=== PATIENT | male | born 1965 | race Asian ===

== ENCOUNTER 2017-04-09 12:38 | Emergency (ER) | payer OTHER ==
[~2017-04-09] VITALS: Ht 165.1 cm; Wt 60.0 kg
[2017-04-09 12:42] VITALS: Ht 165.1 cm; Wt 60.0 kg
[2017-04-09] MEDS ORDERED: DIPHTH/TET/ACEL PERTUSS (ADULT) 0.5 ML VIAL IM* ONE (13:30)
--- NOTE | 2017-04-09 13:42 | RADRPT ---
PROCEDURE: US Abdomen. CLINICAL INDICATION: abdominal pain TECHNIQUE: Multiple real-time images were acquired of the patient's abdomen and retroperitoneum ut ilizing a high resolution transducer. COMPARISON: None FINDINGS: There is no evidence of free fluid. RPTAT: AA IMPRESSION: No evidence of free fluid. .Tarun Tovar MD, MD Date Time Electronically viewed and signed by .Tarun Tovar MD, on 04/09/2017 13:42 .S/
--- NOTE | 2017-04-09 13:56 | ERD ---
ER Documentation Chief Complaint Date/Time DATE: 04/09/17 TIME: 13:54 Chief Complaint Complains of a laceration to left knee after a fall HPI Patient is a 51-year-old male with a past medical history of hypertension and high cholesterol who presents to the ED with a fall off of a ladder today. Patient is here with his . Patient was on top of a wooden ladder approximately 8 feet trying to change the air filter and the ladder broke andand fell off the ladder and landed on his knees. Patient states that he only has pain to his left knee and mild abdominal pain. Denies passing out or hitting his head or losing consciousness. However per patient is acting slightly differently. She states that he was saying the wrong street names however he he was able to direct with proper directions to the ER. Denies chest pain or cough or shortness of breath. Denies leg pain or leg swelling. States that he is unable to ambulate on his left knee. Denies pain in his hips. Denies back pain. No other complaints. ROS All systems reviewed and are negative except as per history of present illness. Medications Home Meds Active Scripts Hydrocodone/Acetaminophen ([place] 5-325 Tablet) 1 Each Tablet, 1 TAB PO Q6H Y for PAIN, #7 TAB Prov:JUAN SHAW PA-C 04/09/17 Allergies Allergies: Coded Allergies: No Known Allergy (Unverified , 04/09/17) PMhx/Soc Medical and Surgical Hx: pt denies Surgical Hx History of Surgery: No Anesthesia Reaction: No Hx Neurological Disorder: No Hx Cardiac Disorders: Yes (hypertension) Hx Psychiatric Problems: No Hx Miscellaneous Medical Probl: No Hx Alcohol Use: No Hx Substance Use: No Hx Tobacco Use: No Smoking Status: Never smoker FmHx Family History: No coronary disease, No diabetes, No other Physical Exam Vitals Vital Signs Date Time Temp Pulse Resp B/P Pulse Ox O2 Delivery O2 Flow Rate FiO2 04/09/17 12:42 98.3 79 20 136/84 97 Physical Exam GENERAL: Well-developed, well-nourished male. Appears in no acute distress. HEAD: Normocephalic, atraumatic. EYES: Pupils are equally reactive bilaterally. EOMs grossly intact. No conjunctival erythema. ENT: Moist mucous membranes. No uvula deviation. No kissing tonsils. No exudates. NECK: Supple. No lymphadenopathy or thyromegaly. No meningismus. negative kernig. negative brudinski. LUNG: Clear to auscultation bilaterally. No rhonchi, wheezing, rales or coarse breath sounds. HEART: Regular rate and rhythm. No murmurs, rubs or gallops. ABDOMEN: No scars, no ecchymosis. Superficial abrasion on the abdomen with no signs of ecchymosis. Soft, nontender, and nondistended. Positive bowel sounds in all four quadrants. No rebound tenderness, no guarding. (-) McBurneys point tenderness. No CVA tenderness. BACK: No midline tenderness. Extremities: Equal pulses bilaterally. No peripheral clubbing, cyanosis or edema. No unilateral leg swelling. NEUROLOGIC: Alert and oriented. Moving all four extremities. 5/5 strength in all extremities. Normal speech. unSteady gait. Cranial nerves II through XII intact. SKIN: Normal color. Warm and dry. No rashes or lesions. Capillary refill < 2 seconds Results 24 hrs Current Medications Medications (Trade) Dose Ordered Sig/Merary Route PRN Reason Start Time Stop Time Status Last Admin Dose Admin Diphtheria/ Tetanus/Acell Pertussis (Adacel) 0.5 ml ONCE ONCE IM* 04/09/17 13:30 04/09/17 13:31 DC 04/09/17 13:21 Lidocaine (Xylocaine 1% (Mdv) 20 ml) 20 ml ONCE ONCE SC 04/09/17 14:30 04/09/17 14:31 DC Neomycin/ Polymyxin/ Bacitracin (Neosporin Topical Oint) 1 applic ONCE ONCE TOP 04/09/17 15:00 04/09/17 15:01 DC 04/09/17 15:08 Procedures/MDM ER COURSE: I kept the patient and/or family informed of laboratory and diagnostic imaging results throughout the emergency room course. PROCEDURES Laceration Repair by me: Anesthesia: 1% lidocaine locally Location: left knee Tendon/Joint/Nerves: No injury Foreign body: None detected after copious irrigation and exploration Technique: 6, 4-0 ethilon Simple Interrupted Sutures Complexity: No subcutaneous sutures/mucosal repair/ edge excision Post Closure Length: 10 cm Patient's bleeding was easily controlled in the department and there is no indication of anemia. No evidence of compartment syndrome, neurologic injury, vascular injury, open joint, tendon laceration, or foreign body. Patient is appropriate for outpatient follow up. 48 hour wound check. Scar minimization instructions given. IMAGING STUDIES [place] [id number] Radiology Main Line: [phone] DIAGNOSTIC IMAGING REPORT Patient: SAVITA ARGUELLO : 1965 Age: 51 Sex: M MR #: [id number] DOS: 04/09/17 1306 Ordering MD: JUAN SHAW PA-C Location: [facility] Room/Bed: PROCEDURE: CT Brain without contrast. CLINICAL INDICATION: FALL FROM LADDER TECHNIQUE: CT scan of the brain was performed on a multidetector high- resolution CT scan. Axial imaging was obtained of the brain without contrast administration. Coronal and sagittal reformatted images were obtained from the axial source images. Standard CT scan of the head without contrast protocols were performed. The total exam CTDI equals 45.01 mGy and the total exam DLP equals 720.23 mGy- cm. One or more of the following dose reduction techniques were used: - Automated exposure control. - Adjustment of the mA and/or kV according to patient size. Use of iterative reconstruction technique. COMPARISON: None. FINDINGS: The ventricular system and peripheral CSF spaces are unremarkable. Negative for intracranial masses hemorrhages or midline shift. The vuong-white matter junction is unremarkable. There is idiopathic by basal ganglia calcifications. Bones and calvarium are intact. Paranasal sinuses visualized are unremarkable. The mastoids are unremarkable. IMPRESSION: No evidence of intracranial masses hemorrhages or midline shift. RPTAT:AAJJ RPTAT:AAJJ Physician [place] Date Time Electronically viewed and signed by Physician [place] on 04/09/2017 14:31 BM/ CC: JUAN SHAW PA-C [place] [id number] Radiology Main Line: [phone] DIAGNOSTIC IMAGING REPORT Patient: SAVITA ARGUELLO : 1965 Age: 51 Sex: M MR #: [id number] DOS: 04/09/17 1306 Ordering MD: JUAN SHAW PA-C Location: [facility] Room/Bed: PROCEDURE: CT cervical spine without contrast. CLINICAL INDICATION: FALL FROM LADDER TECHNIQUE: Axial imaging was obtained through the cervical spine using a multi- slice CT scanner. Standard CT scan of the cervical spine without contrast protocols were performed. CTDI: 22.38 and DLP: 647.35. One or more of the following dose reduction techniques were used: - Automated exposure control. - Adjustment of the mA and/or kV according to patient size. Use of iterative reconstruction technique. COMPARISON: None. FINDINGS: There is mild reversal normal cervical lordosis. There is no evidence of acute fractures or subluxations. The bony mineralization is normal without focal bony blastic or lytic lesions. There is mild to moderate spondylosis of the C4- C7 vertebral levels. At the C4-5 disk level there is mild narrowing of the disk space and posterior broad-based disk bulge with associated calcification and spondylosis but no evidence of central spinal canal stenosis. There is bilateral neural foraminal narrowing. At the C5-6 disk level there is moderate narrowing and posterior broad-based disk bulge with associated calcification and spondylosis without central spinal canal stenosis. There is bilateral neural foraminal narrowing. At the C6-7 disk level there is mild to moderate narrowing of the disk space with posterior broad-based disk bulge and osteophytic ridging but no central spinal canal stenosis. There is bilateral neural foraminal narrowing. No other levels of neural foraminal narrowing. The soft tissues are unremarkable. Those portions the upper lung pleural and airway visualized are unremarkable. IMPRESSION: 1. No evidence acute fractures or subluxations. 2. Multilevel degenerate disease and spondylosis with neural foraminal narrowing as described above. 3. No evidence of central spinal canal stenosis. RPTAT:AAJJ Physician [place] Date Time Electronically viewed and signed by Physician [place] on 04/09/2017 14:38 BM/ CC: JUAN SHAW PA-C [place] [address] Radiology Main Line: [phone] DIAGNOSTIC IMAGING REPORT Patient: SAVITA ARGUELLO : 1965 Age: 51 Sex: M MR #: [id number] DOS: 04/09/17 0000 Ordering MD: JUAN SHAW PA-C Location: [facility] Room/Bed: PROCEDURE: US Abdomen. CLINICAL INDICATION: abdominal pain TECHNIQUE: Multiple real-time images were acquired of the patient's abdomen and retroperitoneum utilizing a high resolution transducer. COMPARISON: None FINDINGS: There is no evidence of free fluid. RPTAT: AA IMPRESSION: No evidence of free fluid. .Tarun Tovar MD, MD Date Time Electronically viewed and signed by .Tarun Tovar MD, MD on 04/09/2017 13: 42 .S/ CC: JUAN SHAW PA-C MEDICAL DECISION MAKING: This is a 51-year-old male who presents with laceration after sustaining a fall off of an 8 foot ladder today.. Vital signs were reviewed. Patient is afebrile. Patient is not hypoxic. X-rays of by radiologist unremarkable for fracture dislocation. CT brain was unremarkable. Risk versus benefits of the CT scan were discussed with patient. wanted a CT of the brain. Ultrasound fast was unremarkable for free fluid. Laceration was sutured without difficulties in the ED. Tetanus vaccine was given here in the ED as patient had not received a tetanus vaccine the last 10 years. Low suspicion for dislocation, fracture, septic joint, compartment syndrome, osteomyelitis, cellulitis, avascular necrosis, neurological injury, vascular injury, tendon laceration. Low suspicion for intracranial hemorrhage, meningitis, intracranial mass, concussion, temporal arteritis, stroke, elevated intracranial pressure, seizure. Low suspicion for dislocation, fracture, epidural abscess, herniation , osteomyelitis, meningitis, neurological deficit DISCHARGE: At this time, patient is stable for discharge and outpatient management with no new complaints during the ER course. Patient was sent home with copy of all imaging report and to return in 2 days for wound check.. Patient will be discharged home with instructions to recheck for new or worsening symptoms such as fever, nausea, weakness, LOC and to follow up with primary care in the next 1 -2 days. Patient was advised to return to the ER for any new or worsening symptoms. Plan was discussed and patient and/or family understands and agrees. Home instructions were given. Departure Diagnosis: Primary Impression: Laceration Condition: Stable JUAN SHAW PA-C Apr 09, 2017 13:56
--- NOTE | 2017-04-09 14:22 | RADRPT ---
PROCEDURE: XR bilateral knees. CLINICAL INDICATION: Injury TECHNIQUE: AP, PA and lateral views of each knee are available for review. COMPARISON: None available FINDINGS: The osseous structures are normal in mineralization, architecture and alignment. No fractures are i dentified. No osseous lesions are identified. The joints are unremarkable. The soft tissues are u nremarkable. IMPRESSION: Unremarkable examination RPTAT: HGDB .Rob Flores MD, MD Date Time Electronically viewed and signed by .Rob Flores MD, on 04/09/2017 14:22 .B/
--- NOTE | 2017-04-09 14:24 | RADRPT ---
PROCEDURE: XR bilateral hips. CLINICAL INDICATION: Injury TECHNIQUE: AP and frog-leg lateral views of the pelvis performed COMPARISON: No prior studies are available for comparison. FINDINGS: There is mild bilateral hip osteoarthrosis. This is associated with mild joint space narrowing. The re is normal mineralization. No fractures or osseous lesions are identified. The soft tissues are unremarkable. IMPRESSION: Mild bilateral hip osteoarthrosis No fracture identified. RPTAT: HGDB .Rob Flores MD, MD Date Time Electronically viewed and signed by .Rob Flores MD, on 04/09/2017 14:24 .B/
--- NOTE | 2017-04-09 14:25 | RADRPT ---
PROCEDURE: XR Lumbar Spine. CLINICAL INDICATION: Injury TECHNIQUE: Two views of the lumbar spine are available for review COMPARISON: None available FINDINGS: There is mild L2-3 degenerative disk disease. This is associated with disk space narrowing, endpla te sclerosis and spondylosis. The vertebral bodies are otherwise normal in mineralization, architec ture and alignment. No fractures or osseous lesions are identified. No subluxation is demonstrated . The facet joints are unremarkable. The soft tissues are unremarkable. IMPRESSION: Mild L2-3 degenerative disk disease. No fracture identified RPTAT: HGDB .Rob Flores MD, Date Time Electronically viewed and signed by .Rob Flores MD, on 04/09/2017 14:25 .B/
[2017-04-09] MEDS ORDERED: LIDOCAINE 1% (MDV) 20 ML INJ SC ONE (14:30)
--- NOTE | 2017-04-09 14:32 | RADRPT ---
PROCEDURE: CT Brain without contrast. CLINICAL INDICATION: FALL FROM LADDER TECHNIQUE: CT scan of the brain was performed on a multidetector high-resolution CT scan. Axial im aging was obtained of the brain without contrast administration. Coronal and sagittal reformatted i mages were obtained from the axial source images. Standard CT scan of the head without contrast prot ocols were performed. The total exam CTDI equals 45.01 mGy and the total exam DLP equals 720.23 mGy-cm. One or more of the following dose reduction techniques were used: - Automated exposure control. - Adjustment of the mA and/or kV according to patient size. Use of iterative reconstruction technique. COMPARISON: None. FINDINGS: The ventricular system and peripheral CSF spaces are unremarkable. Negative for intracranial masses hemorrhages or midline shift. The vuong-white matter junction is unremarkable. There is idiopathic by basal ganglia calcifications. Bones and calvarium are intact. Paranasal sinuses visualized are unremarkable. The mastoids are unremarkable. IMPRESSION: No evidence of intracranial masses hemorrhages or midline shift. RPTAT:AAJJ RPTAT:AAJJ Physician [place] Date Time Electronically viewed and signed by Physician [place] on 04/09/2017 14:31 /
--- NOTE | 2017-04-09 14:38 | RADRPT ---
PROCEDURE: CT cervical spine without contrast. CLINICAL INDICATION: FALL FROM LADDER TECHNIQUE: Axial imaging was obtained through the cervical spine using a multi-slice CT scanner. [facility] CT scan of the cervical spine without contrast protocols were performed. CTDI: 22.38 and DLP: 647.35. One or more of the following dose reduction techniques were used: - Automated exposure control. - Adjustment of the mA and/or kV according to patient size. Use of iterative reconstruction technique. COMPARISON: None. FINDINGS: There is mild reversal normal cervical lordosis. There is no evidence of acute fractures or subluxa tions. The bony mineralization is normal without focal bony blastic or lytic lesions. There is mil d to moderate spondylosis of the C4-C7 vertebral levels. At the C4-5 disk level there is mild narrowing of the disk space and posterior broad-based disk bulg e with associated calcification and spondylosis but no evidence of central spinal canal stenosis. T here is bilateral neural foraminal narrowing. At the C5-6 disk level there is moderate narrowing and posterior broad-based disk bulge with associa marilyn calcification and spondylosis without central spinal canal stenosis. There is bilateral neural foraminal narrowing. At the C6-7 disk level there is mild to moderate narrowing of the disk space with posterior broad-ba sed disk bulge and osteophytic ridging but no central spinal canal stenosis. There is bilateral madie ral foraminal narrowing. No other levels of neural foraminal narrowing. The soft tissues are unrem arkable. Those portions the upper lung pleural and airway visualized are unremarkable. IMPRESSION: 1. No evidence acute fractures or subluxations. 2. Multilevel degenerate disease and spondylosis with neural foraminal narrowing as described above . 3. No evidence of central spinal canal stenosis. RPTAT:AAJJ Physician [place] Date Time Electronically viewed and signed by Physician [place] on 04/09/2017 14:38 BM/
[2017-04-09] MEDS ORDERED: NEOMYC/POLYMYX/BACIT 30 GM OINT TOP ONE (15:00)
[2017-04-09] MEDS ORDERED: HYDR-906 PO (15:04)
== END 2017-04-09 15:31 | disposition home or self-care (01) ==
LOC: FTE 12:38
DX: S81.012A Laceration without foreign body, left knee, initial encounter (principal); I10 Essential (primary) hypertension; W11.XXXA Fall on and from ladder, initial encounter; Y92.9 Unspecified place or not applicable; Z23 Encounter for immunization
CPT/HCPCS: 70450; 72100; 72125; 73520; 76705; 90471; 90715

== ENCOUNTER 2017-04-11 07:46 | Emergency (ER) | payer OTHER ==
[~2017-04-11] VITALS: Wt 75.0 kg
[~2017-04-11 07:46] MED LIST: HYDR-906 PO
--- NOTE | 2017-04-11 08:07 | ERD ---
ER Documentation Chief Complaint Date/Time DATE: 04/11/17 TIME: 08:05 Chief Complaint LEFT FOOT LAC RECHECK HPI This 51-year-old male who presents to the emergency department today for wound check of sutures he had placed on his left knee after falling off a ladder. States he is not taking antibiotics. Denies any fevers or chills. ROS All systems reviewed and are negative except as per history of present illness. Medications Home Meds Active Scripts Hydrocodone/Acetaminophen ([place] 5-325 Tablet) 1 Each Tablet, 1 TAB PO Q6H Y for PAIN, #7 TAB Prov:JUAN SHAW PA-C 04/09/17 Allergies Allergies: Coded Allergies: No Known Allergy (Unverified , 04/09/17) PMhx/Soc History of Surgery: No Anesthesia Reaction: No Hx Neurological Disorder: No Hx Cardiac Disorders: Yes (hypertension) Hx Psychiatric Problems: No Hx Miscellaneous Medical Probl: No Hx Alcohol Use: No Hx Substance Use: No Hx Tobacco Use: No Physical Exam Vitals Vital Signs Date Time Temp Pulse Resp B/P Pulse Ox O2 Delivery O2 Flow Rate FiO2 04/11/17 07:48 98.0 81 18 166/89 98 Physical Exam Const: Pleasant, no acute distress Head: Atraumatic Eyes: Normal Conjunctiva ENT: Normal External Ears, Nose and Mouth. Neck: Full range of motion..~ No meningismus. Resp: Clear to auscultation bilaterally Cardio: Regular rate and rhythm, no murmurs Skin: Left knee with evidence of 6 sutures placed. No purulent drainage. No erythema or warmth. Mild bleeding. Back: No midline or flank tenderness Ext: Left knee with evidence of 6 sutures placed. No purulent drainage. No erythema or warmth. Mild bleeding. Full active range of motion. Pulses 2+. Neur: Awake and alert Psych: Normal Mood and Affect Procedures/MDM This 51-year-old male who presents the emergency department today for a wound check of sutures he had placed 2 days ago on his left knee after falling off a ladder. At that time patient was given a Tdap injection. He is not currently taking any antibiotics. Patient is afebrile and otherwise well-appearing. The wound appears to be healing well and is well approximated. There was some very mild bleeding from the site but was well controlled. Low suspicion for sepsis, deep space infection, cellulitis. Wound was redressed here in the emergency department. He was instructed to keep the wound clean and dry. He was instructed to return in approximately 7 days for suture removal. Patient and his understood and agreed with the plan. At this time the patient is stable for discharge and outpatient management. Patient should follow up with their PCP in the next 1-2 days. They may return to the emergency department sooner for any persistent or worsening of symptoms. Patient understood and agreed with the plan. Departure Diagnosis: Primary Impression: Encounter for wound re-check Condition: Fair Patient Instructions: Wound Care Referrals: your PCP Additional Instructions: Call your primary care doctor TOMORROW for an appointment during the next 1-2 days.See the doctor sooner or return here if your condition worsens before your appointment time. Clean and dry Suture removal in 7 days LAVERNE ABBOTT PA-C Apr 11, 2017 08:07
== END 2017-04-11 08:23 | disposition home or self-care (01) ==
LOC: FTE 07:46
DX: Z48.01 Encounter for change or removal of surgical wound dressing (principal); I10 Essential (primary) hypertension
CPT/HCPCS: 99281